=== PATIENT | male | born 1980 | race Caucasian/White ===

== ENCOUNTER 2017-06-08 18:24 | Emergency (ER) | payer MEDICAID ==
[~2017-06-08] VITALS: Ht 177.8 cm; Wt 96.8 kg
[2017-06-08 19:39] VITALS: BP 156/114
[2017-06-08] MEDS ORDERED: hydrALAZINE 20 MG/ML VIAL IM ONE (21:00)
[2017-06-08 21:53] VITALS: BP 150/97
== END 2017-06-08 21:40 | disposition home or self-care (01) ==
LOC: MED 18:24
DX: I16.0 Hypertensive urgency (principal)
CPT/HCPCS: 96372; 99283; J0360